=== PATIENT | female | born 1995 | race Caucasian/White ===

== ENCOUNTER 2022-12-13 10:07 | Inpatient (IN) | payer OTHER ==
[~2022-12-13 10:07] MED LIST: Bupivacaine 0.25% HCL 30 ML VIAL ONE
[2022-12-13] MEDS ORDERED: hydrALAZINE 20 MG/ML VIAL SLOW IVP PRN (11:03)
[2022-12-13] MEDS ORDERED: Ondansetron PF 4 MG/2 ML Vial IVP PRN (11:03)
[2022-12-13] MEDS ORDERED: Misoprostol 200 MCG TAB PR PRN (11:03)
[2022-12-13] MEDS ORDERED: Methylergonovine 0.2 MG/ML VIAL IM PRN (11:03)
[2022-12-13] MEDS ORDERED: Ibuprofen 800 MG TAB PO PRN (11:03)
[2022-12-13] MEDS ORDERED: Diphenoxylate HCl/Atropine Tablet PO PRN ×2 (11:03)
[2022-12-13] MEDS ORDERED: HYDROcodone/Acetaminophen 5/325 mg Tablet PO PRN ×2 (11:03)
[2022-12-13] MEDS ORDERED: Lidocaine 1% (PF) 30 ML VIAL SC PRN (11:03)
[2022-12-13] MEDS ORDERED: Carboprost 250 MCG/ML AMP IM PRN (11:03)
[2022-12-13] MEDS ORDERED: Promethazine HCl 25 MG/ML VIAL IM PRN (11:03)
[2022-12-13] MEDS ORDERED: fentaNYL 50 mcg/mL 1 mL Vial SLOW IVP PRN (11:03)
[2022-12-13 11:10] VITALS: BMI 32.4
[2022-12-13] MEDS ORDERED: Oxytocin 30 units/NS 500 ML 500 ML IV SCH ×2 (11:15)
[2022-12-13] MEDS ORDERED: Lactated Ringer's 1,000 ML IV SCH (11:15)
[2022-12-13] MEDS ORDERED: Penicillin G Potassium 5 MILL.UNITS in Sodium Chloride 0.9% 100 ML IVPB SCH (11:15)
[2022-12-13] MEDS: Misoprostol 100 MCG TAB VAG SCH ×3 (11:28→18:38)
[2022-12-13 11:37] LABS: Hemoglobin 13.4 g/dL (12.0-15.5); Mean Corpuscular HGB CONC 35.3 g/dL (32.0-36.0); Mean Corpuscular Hemoglobin 32.8 pg (27.0-33.0); Mean Corpuscular Volume 93.1 fl (81.6-98.3); Mean Platelet Volume 9.5 fl (7.4-10.4); Platelet Count 214 10x3/uL (150-450); RBC Distribution Width 12.1 % (11.5-14.5); Red Blood Cell (RBC) Count 4.08 10x6/uL (3.90-5.03); White Blood Cell (WBC) Count 9.7 10x3/uL (3.5-10.5)
[2022-12-13 12:09] LABS: Syphilis Antibody Nonreactive (Nonreactive)
[2022-12-13 12:10] LABS: Hep B Surf Ag - L&D Non-Reactive S/CO (NonReactive)
[2022-12-13] MEDS ORDERED: Penicillin G Potassium 5 MILL.UNITS VIAL ONE (23:42)
[2022-12-13] MEDS ORDERED: fentaNYL/Ropivacaine Epidural 100 ML ONE (23:43)
[2022-12-14] MEDS ORDERED: Lactated Ringer's 500 ML IV PRN (01:30)
[2022-12-14] MEDS ORDERED: Promethazine HCl 25 MG/ML VIAL IM PRN (01:30)
[2022-12-14] MEDS ORDERED: Acetaminophen 325 MG TAB PO PRN (01:30)
[2022-12-14] MEDS ORDERED: Naloxone HCl 0.4 mg/ml Vial IVP PRN ×2 (01:30)
[2022-12-14] MEDS ORDERED: Moisturizing Cream (Eucerin) 113 GM JAR TOP PRN (01:30)
[2022-12-14] MEDS ORDERED: diphenhydrAMINE 50 MG/ML VIAL IVP PRN (01:30)
[2022-12-14] MEDS ORDERED: Ondansetron PF 4 MG/2 ML Vial IVP PRN (01:30)
[2022-12-14] MEDS ORDERED: ePHEDrine Sulfate 50 MG/10 ML VIAL SLOW IVP PRN (01:30)
[2022-12-14] MEDS ORDERED: fentaNYL 2 mcg/Ropivacaine 0.2% Epidural 100 ML CADD EPIDURAL SCH (01:30)
[2022-12-14] MEDS ORDERED: Communication Order-Pharmacy FS SCH (01:30)
[2022-12-14] MEDS: Penicillin G 2.5 MILL.units 2.5 MILL.UNITS in Premix Bag 1 BAG IVPB SCH ×3 (03:30→13:41)
[2022-12-14] MEDS ORDERED: Tranexamic Acid 1,000 MG/10 ML VIAL ONE (03:35)
[2022-12-14] MEDS ORDERED: HYDROcodone/Acetaminophen 5/325 mg Tablet PO PRN (07:32)
[2022-12-14] MEDS ORDERED: Boostrix 0.5 ML (Tdap) VIAL (>/=7 yrs of age) IM ONE (07:32)
[2022-12-14] MEDS ORDERED: Methylergonovine 0.2 MG/ML VIAL IM PRN (07:32)
[2022-12-14] MEDS ORDERED: Benzocaine-Menthol 82.5 ML CAN TOP PRN (07:32)
[2022-12-14] MEDS ORDERED: hydrALAZINE 20 MG/ML VIAL SLOW IVP PRN (07:32)
[2022-12-14] MEDS ORDERED: Milk Of Magnesia 30 ML UDCUP PO PRN (07:32)
[2022-12-14] MEDS ORDERED: Lanolin Ointment 7 GM TUBE TOP PRN (07:32)
[2022-12-14] MEDS ORDERED: Bisacodyl 10 MG SUPP PR PRN (07:32)
[2022-12-14] MEDS ORDERED: Misoprostol 200 MCG TAB VAG PRN (07:32)
[2022-12-14] MEDS ORDERED: Oxytocin 30 units/NS 500 ML 500 ML IV SCH (07:32)
[2022-12-14] MEDS: Ferrous Sulfate 325 MG TAB PO SCH ×2 (08:56→16:17)
[2022-12-14] MEDS: Docusate 100 MG CAP PO SCH ×2 (08:59→21:19)
[2022-12-14] MEDS: Prenatal Vitamin 1 TAB PO SCH (08:59)
[2022-12-14] MEDS: HYDROcodone/Acetaminophen 5/325 mg Tablet PO PRN ×2 (10:17→16:36)
[2022-12-14] MEDS: Misoprostol 100 MCG TAB VAG SCH (13:41)
[2022-12-14] MEDS: Ibuprofen 800 MG TAB PO SCH ×2 (13:42→21:19)
[2022-12-15 04:00] VITALS: TEMP 97.8
[2022-12-15] MEDS: Ibuprofen 800 MG TAB PO SCH ×2 (05:40→13:30)
[2022-12-15 07:35] VITALS: BP 114/68
[2022-12-15] MEDS: Prenatal Vitamin 1 TAB PO SCH (07:51)
[2022-12-15] MEDS: Ferrous Sulfate 325 MG TAB PO SCH ×2 (07:51→16:28)
[2022-12-15] MEDS: Docusate 100 MG CAP PO SCH (07:51)
== END 2022-12-15 18:50 | disposition home or self-care (01) | DRG 807 ==
LOC: CSHLD 10:07 → CSHPP 12-14 07:43
PROVIDERS: ADMIT Obstetrics & Gynecology; ATTEND Obstetrics & Gynecology
PROC: 10E0XZZ Delivery of Products of Conception, External Approach (ICD-10-PCS; principal; 2022-12-14)
PROC: 0KQM0ZZ Repair Perineum Muscle, Open Approach (ICD-10-PCS; 2022-12-14)
DX: O40.3XX0 Polyhydramnios, third trimester, not applicable or unspecified (principal); Z37.0 Single live birth; Z3A.40 40 weeks gestation of pregnancy; O99.824 Streptococcus B carrier state complicating childbirth; O70.1 Second degree perineal laceration during delivery; O36.63X0 Maternal care for excessive fetal growth, third trimester, not applicable or unspecified
CPT/HCPCS: 36415; 51702; 85027; 86780; 86850; 86900; 86901; 87340; J2540; J2590; J3490; S0020